=== PATIENT | male | born 1940 | race Caucasian/White ===

== ENCOUNTER 2019-05-17 10:14 | Emergency (ER) | payer MEDICARE, OTHER, SELFPAY ==
[2019-05-17 10:26] VITALS: BP 141/61; PULSE 92; RESP 20; TEMP 37; O2SAT 96; BMI 23.1
--- NOTE | 2019-05-17 10:27 | DI.RAD.S_ITS ---
PROCEDURE: XR CHEST 1V INDICATIONS: cough TECHNIQUE: One view of the chest was acquired. COMPARISON: [facility], CHEST 2 VIEW, 11/13/2007, 12:05. [facility], CHEST 2 VIEW, 06/06/2010, 12:00. FINDINGS: Surgical changes and devices: None. Lungs and pleura: Lungs are clear. No pleural effusions or pneumothorax. Mediastinum: Mediastinal contours appear normal. Heart size is normal. Bones and chest wall: No suspicious bony lesions. Age-appropriate bony degenerative changes are seen. Overlying soft tissues appear unremarkable. IMPRESSION: No focal infiltrates are seen. Dictated by: Dax Ag M.D. on 05/17/2019 at 9:50 Approved by: Dax Ag M.D. on 05/17/2019 at 9:51
--- NOTE | 2019-05-17 10:30 | ED.URI ---
HPI - URI/Sore Throat General Chief Complaint: Upper Respiratory Symptoms Stated Complaint: Uncontrollable shakes/chills Time Seen by Provider: 05/17/19 10:22 Source: patient Mode of arrival: ambulatory Limitations: no limitations History of Present Illness HPI Narrative: Patient today presents with shaking. He states last night he noticed he was quite cold and could not warm. This morning they went to [employer] and he again started shaking uncontrollably. He at no time had drenching sweats. He had a little cough yesterday after working outside with some things. He denies any shortness of breath with exertion no chest pain or heart palpitations. No abdominal pain nausea vomiting. No painful or frequent urination. His cough is nonproductive MD Complaint: cough Onset (ago): day(s) (1) Duration: improved Severity: mild Relieving factors: nothing Related Data Allergies Allergy/AdvReac Type Severity Reaction Status Date / Time No Known Drug Allergies Allergy Verified 05/17/19 10:30 Review of Systems Review of Systems ROS Unobtainable: All systems reviewed & are unremarkable except as noted in HPI and below Constitutional Reports chills, Denies night sweats and Denies weakness Eyes Denies change in vision, Denies eye discharge, Denies irritation and Denies loss of vision ENT Ears, Nose, Mouth, and Throat: Denies change in voice, Denies neck pain and Denies sore throat Cardiovascular Denies chest pain, Denies irregular heart rhythm, Denies lightheadedness, Denies palpitations and Denies orthopnea Respiratory Reports as per HPI Gastrointestinal Gastrointestinal: Denies abdominal pain, Denies change in bowel habits, Denies diarrhea, Denies nausea and Denies vomiting Musculoskeletal Denies neck pain Integumentary/Breasts Denies pruritus, Denies erythema, Denies rash and Denies wounds Neurologic Denies loss of vision and Denies weakness Endocrine Denies palpitations [facility] Medical History Patient denies significant medical history (Acute) Social History (Updated 05/17/19 @ 13:28 by Malinda Erickson DO) marital status: Smoking Status: Never smoker Social History marital status: Smoking Status: Never smoker Exam Initial Vital Signs Initial Vital Signs: Vital Signs Temperature 98.6 F 05/17/19 10:26 Pulse Rate 92 H 05/17/19 10:26 Respiratory Rate 20 05/17/19 10:26 Blood Pressure 141/61 H 05/17/19 10:26 Pulse Oximetry 96 05/17/19 10:26 GENERAL: Well-appearing, well-nourished and in no acute distress. HEENT: Head atraumatic,EOMI, pupils reactive, face symmetric, CARDIOVASCULAR: Regular rate and rhythm without murmurs, rubs or gallops. RESPIRATORY: Breath sounds equal bilaterally, no wheezes rales or rhonchi. ABDOMEN: Soft, nontender. Normoactive bowel sounds all 4 quadrants. No guarding or rebound. : No CVA tenderness EXTREMITIES: Normal range of motion, no clubbing or edema. Neurovascularly intact NEUROLOGICAL: Alert and oriented x4.Normal gait and speech. Cranial nerves II through XII grossly intact. SKIN: Warm, dry, no laceration, no petechiae, no rashes or lesions. Course Orders Ordered: ED Orders 05/17/19 10:27 XR chest 1V Stat 05/17/19 10:38 Complete Blood Count AUTO DIFF Stat Comprehensive Metabolic Panel Stat Lactate (Lactic Acid) Stat Procalcitonin Stat 05/17/19 11:06 Blood Culture Stat 05/17/19 12:05 Urine Microscopic Stat Discontinued Medications Sodium Chloride (Normal Saline 0.9%) 1,000 mls @ 1,000 mls/hr IV CONT KADE Last Infusion: 05/17/19 11:58 Dose: 0 mls/hr Admin: 05/17/19 10:47 Dose: 1,000 mls/hr Vital Signs - 8 hr 05/17/19 10:26 05/17/19 11:00 05/17/19 12:09 Temperature 98.6 F Pulse Rate 92 H 83 82 Respiratory Rate 20 21 20 Blood Pressure 141/61 H Blood Pressure [Right Arm] 135/51 L 117/45 L Pulse Oximetry 96 97 99 MDM - URI/Sore Throat Lab Data Attestation: I reviewed the patient's lab results. Result diagrams: 05/17/19 10:38 05/17/19 10:38 Lab Results 05/17/19 05/17/19 05/17/19 Range/Units 10:38 10:38 10:38 WBC 11.8 H (4.5-11.0) X10^3/uL RBC 4.91 (4.5-5.9) X10^6/uL Hgb 15.3 (13.5-17.5) g/dL Hct 45.0 (41-53) % MCV 91.6 (80-100) fL MCH 31.0 (26-34) PG MCHC 33.9 (30-36) % RDW 13.0 (11.6-14.8) % Plt Count 165 (150-400) X10^3/uL Neut % (Auto) 95.0 H (50-75) % Lymph % (Auto) 3.1 L (25-40) % [place] % (Auto) 1.3 L (3-14) % Eos % (Auto) 0.4 L (2-4) % Baso % (Auto) 0.2 (0-2) % Neut # (Auto) 04140 H (0394-7519) /uL Lymph # (Auto) 400 L (5062-2900) /uL Rowan # (Auto) 200 (0-900) /uL Eos # (Auto) 0 (0-450) /uL Baso # (Auto) 0 (0-100) /uL Sodium 138 (137-145) mmol/L Potassium 4.2 (3.4-5.1) mmol/L Chloride 101 (98-107) mmol/L Carbon Dioxide 26 (22-32) mmol/L BUN 21 H (9-20) mg/dL Creatinine 1.10 (0.66-1.25) mg/dL Estimated GFR > 60.0 (>60) mL/min BUN/Creatinine Ratio 19.1 (6-22) Glucose 98 (80-110) mg/dL Lactate (0.7-2.1) mmol/L Calcium 9.4 (8.4-10.2) mg/dL Total Bilirubin 1.1 (0.2-1.3) mg/dL AST 27 (17-59) IU/L ALT 25 (21-72) IU/L Alkaline Phosphatase 76 (38-126) U/L Total Protein 7.3 (6.3-8.2) g/dL Albumin 4.3 (3.5-5.0) g/dL Globulin 3.0 (1.7-4.1) g/dL Albumin/Globulin Ratio 1.4 (1.0-2.8) Procalcitonin < 0.05 (<0.5) ng/mL Urine RBC (0-5/HPF) Urine WBC (0-5/HPF) Ur Squamous Epith Cells (0-5/HPF) Urine Bacteria (None) Ur Culture Indicated? 05/17/19 05/17/19 Range/Units 10:38 12:05 WBC (4.5-11.0) X10^3/uL RBC (4.5-5.9) X10^6/uL Hgb (13.5-17.5) g/dL Hct (41-53) % MCV (80-100) fL MCH (26-34) PG MCHC (30-36) % RDW (11.6-14.8) % Plt Count (150-400) X10^3/uL Neut % (Auto) (50-75) % Lymph % (Auto) (25-40) % Rowan % (Auto) (3-14) % Eos % (Auto) (2-4) % Baso % (Auto) (0-2) % Neut # (Auto) (5194-0328) /uL Lymph # (Auto) (0511-2922) /uL Rowan # (Auto) (0-900) /uL Eos # (Auto) (0-450) /uL Baso # (Auto) (0-100) /uL Sodium (137-145) mmol/L Potassium (3.4-5.1) mmol/L Chloride (98-107) mmol/L Carbon Dioxide (22-32) mmol/L BUN (9-20) mg/dL Creatinine (0.66-1.25) mg/dL Estimated GFR (>60) mL/min BUN/Creatinine Ratio (6-22) Glucose (80-110) mg/dL Lactate 1.6 (0.7-2.1) mmol/L Calcium (8.4-10.2) mg/dL Total Bilirubin (0.2-1.3) mg/dL AST (17-59) IU/L ALT (21-72) IU/L Alkaline Phosphatase (38-126) U/L Total Protein (6.3-8.2) g/dL Albumin (3.5-5.0) g/dL Globulin (1.7-4.1) g/dL Albumin/Globulin Ratio (1.0-2.8) Procalcitonin (<0.5) ng/mL Urine RBC 0-1/hpf (0-5/HPF) Urine WBC 0-1/hpf (0-5/HPF) Ur Squamous Epith Cells 0-1 /hpf (0-5/HPF) Urine Bacteria None seen (None) Ur Culture Indicated? Cult not indicated Urine Dip Bedside Urine Glucose Negative Bedside Urine Bilirubin - Negative Bedside Urine Ketone - Negative Urine Specific [place] 1.020 Bedside Urine Occult Blood +/- Bedside Urine pH 5.0 Bedside Urine Protein - Negative Bedside Urine Urobilinogen - Negative Bedside Urine Nitrite - Negative Bedside Urine Leukocytes - Negative Esterase Imaging Data Chest x-ray: Radiologist's impression: Report in PACS no focal infiltrates are seen MDM Narrative Medical decision making narrative: At this time patient has been only chilled for under 12 hours. No sweats or fever. No sign of infection. I explained that he may be getting an infection. However no focal infection identified no need for antibiotics. He did have slight nonproductive cough yesterday. Possible bronchitis. He has no focal deficits to suggest stroke or anything neurologic. He has been ambulatory to the restroom at least twice. Discharge Plan Departure Patient Disposition: Home Clinical Impression: Upper respiratory infection Qualifiers: URI type: unspecified viral URI Qualified Code(s): J06.9 - Acute upper respiratory infection, unspecified Discharge Date/Time: 05/17/19 12:35 Interventions: ED Discharge Assessment Last Done: 05/17/19 12:34 Instructions: DI for Acute Bronchitis Activity Restrictions/Additional Instructions: *You have been diagnosed with possible bronchitis *What to do: At this time no pneumonia no sign of infection. Recommend resting increasing fluid intake. At this time there is no indication for antibiotics. *Continue to take medications as directed *Follow up with your primary care provider in 2-3 days *Return to ER if you should have worsening cough, shortness of breath, sweats or any new, worsening or concerning symptoms Referrals: Jarocho Pelletier MD [Primary Care Provider] -
--- NOTE | 2019-05-17 10:33 | ED_ITS ---
HPI - URI/Sore Throat General Chief Complaint: Upper Respiratory Symptoms Stated Complaint: Uncontrollable shakes/chills Time Seen by Provider: 05/17/19 10:22 Source: patient Mode of arrival: ambulatory Limitations: no limitations History of Present Illness HPI Narrative: Patient today presents with shaking. He states last night he noticed he was quite cold and could not warm. This [place] [facility] [place] [employer] [place] and he again started shaking uncontrollably. He at no time had drenching sweats. He had a little cough yesterday after working outside with some things. He denies any shortness of breath with exertion no chest pain or heart palpitations. No abdominal pain nausea vomiting. No painful or frequent u rination. His cough is nonproductive MD Complaint: cough Onset (ago): day(s) (1) Duration: improved Severity: mild Relieving factors: nothing Related Data Allergies Allergy/AdvReac Type Severity Reaction Status Date / Time No Known Drug Allergies Allergy Verified 05/17/19 10:30 Review of Systems Review of Systems ROS Unobtainable: All systems reviewed & are unremarkable except as noted in HPI and below Constitutional Reports chills, Denies night sweats and Denies weakness Eyes Denies change in vision, Denies eye discharge, Denies irritation and Denies loss of vision ENT Ears, Nose, Mouth, and Throat: Denies change in voice, Denies neck pain and Denies sore throat Cardiovascular Denies chest pain, Denies irregular heart rhythm, Denies lightheadedness, Denies palpitations and Denies orthopnea Respiratory Reports as per HPI Gastrointestinal Gastrointestinal: Denies abdominal pain, Denies change in bowel habits, Denies diarrhea, Denies nausea and Denies vomiting Musculoskeletal Denies neck pain Integumentary/Breasts Denies pruritus, Denies erythema, Denies rash and Denies wounds Neurologic Denies loss of vision and Denies weakness Endocrine Denies palpitations [facility] Medical History Patient denies significant medical history (Acute) Social History (Updated 05/17/19 @ 13:28 by Malinda Erickson DO) marital status: Smoking Status: Never smoker Social History marital status: Smoking Status: Never smoker Exam Initial Vital Signs Initial Vital Signs: Vital Signs Temperature 98.6 F 05/17/19 10:26 Pulse Rate 92 H 05/17/19 10:26 Respiratory Rate 20 05/17/19 10:26 Blood Pressure 141/61 H 05/17/19 10:26 Pulse Oximetry 96 05/17/19 10:26 GENERAL: Well-appearing, well-nourished and in no acute distress. HEENT: Head atraumatic,EOMI, pupils reactive, face symmetric, CARDIOVASCULAR: Regular rate and rhythm without murmurs, rubs or gallops. RESPIRATORY: Breath sounds equal bilaterally, no wheezes rales or rhonchi. ABDOMEN: Soft, nontender. Normoactive bowel sounds all 4 quadrants. No guarding or rebound. : No CVA tenderness EXTREMITIES: Normal range of motion, no clubbing or edema. Neurovascularly intact NEUROLOGICAL: Alert and oriented x4.Normal gait and speech. Cranial nerves II through XII grossly intact. SKIN: Warm, dry, no laceration, no petechiae, no rashes or lesions. Course Orders Ordered: ED Orders 05/17/19 10:27 XR chest 1V Stat 05/17/19 10:38 Complete Blood Count AUTO DIFF Stat Comprehensive Metabolic Panel Stat Lactate (Lactic Acid) Stat Procalcitonin Stat 05/17/19 11:06 Blood Culture Stat 05/17/19 12:05 Urine Microscopic Stat Discontinued Medications Sodium Chloride (Normal Saline 0.9%) 1,000 mls @ 1,000 mls/hr IV CONT KADE Last Infusion: 05/17/19 11:58 Dose: 0 mls/hr Admin: 05/17/19 10:47 Dose: 1,000 mls/hr Vital Signs - 8 hr 05/17/19 10:26 05/17/19 11:00 05/17/19 12:09 Temperature 98.6 F Pulse Rate 92 H 83 82 Respiratory Rate 20 21 20 Blood Pressure 141/61 H Blood Pressure [Right Arm] 135/51 L 117/45 L Pulse Oximetry 96 97 99 MDM - URI/Sore Throat Lab Data Attestation: I reviewed the patient's lab results. Result diagrams: 05/17/19 10:38 05/17/19 10:38 Lab Results 05/17/19 05/17/19 05/17/19 Range/Units 10:38 10:38 10:38 WBC 11.8 H (4.5-11.0) X10^3/uL RBC 4.91 (4.5-5.9) X10^6/uL Hgb 15.3 (13.5-17.5) g/dL Hct 45.0 (41-53) % MCV 91.6 (80-100) fL MCH 31.0 (26-34) PG MCHC 33.9 (30-36) % RDW 13.0 (11.6-14.8) % Plt Count 165 (150-400) X10^3/uL Neut % (Auto) 95.0 H (50-75) % Lymph % (Auto) 3.1 L (25-40) % [place] % (Auto) 1.3 L (3-14) % Eos % (Auto) 0.4 L (2-4) % Baso % (Auto) 0.2 (0-2) % Neut # (Auto) 23046 H (4584-4121) /uL Lymph # (Auto) 400 L (8749-2359) /uL [place] # (Auto) 200 (0-900) /uL Eos # (Auto) 0 (0-450) /uL Baso # (Auto) 0 (0-100) /uL Sodium 138 (137-145) mmol/L Potassium 4.2 (3.4-5.1) mmol/L Chloride 101 (98-107) mmol/L Carbon Dioxide 26 (22-32) mmol/L BUN 21 H (9-20) mg/dL Creatinine 1.10 (0.66-1.25) mg/dL Estimated GFR > 60.0 (>60) mL/min BUN/Creatinine Ratio 19.1 (6-22) Glucose 98 (80-110) mg/dL Lactate (0.7-2.1) mmol/L Calcium 9.4 (8.4-10.2) mg/dL Total Bilirubin 1.1 (0.2-1.3) mg/dL AST 27 (17-59) IU/L ALT 25 (21-72) IU/L Alkaline Phosphatase 76 (38-126) U/L Total Protein 7.3 (6.3-8.2) g/dL Albumin 4.3 (3.5-5.0) g/dL Globulin 3.0 (1.7-4.1) g/dL Albumin/Globulin Ratio 1.4 (1.0-2.8) Procalcitonin < 0.05 (<0.5) ng/mL Urine RBC (0-5/HPF) Urine WBC (0-5/HPF) Ur Squamous Epith Cells (0-5/HPF) Urine Bacteria (None) Ur Culture Indicated? 05/17/19 05/17/19 Range/Units 10:38 12:05 WBC (4.5-11.0) X10^3/uL RBC (4.5-5.9) X10^6/uL Hgb (13.5-17.5) g/dL Hct (41-53) % MCV (80-100) fL MCH (26-34) PG MCHC (30-36) % RDW (11.6-14.8) % Plt Count (150-400) X10^3/uL Neut % (Auto) (50-75) % Lymph % (Auto) (25-40) % [place] % (Auto) (3-14) % Eos % (Auto) (2-4) % Baso % (Auto) (0-2) % Neut # (Auto) (8215-6958) /uL Lymph # (Auto) (5043-3818) /uL [place] # (Auto) (0-900) /uL Eos # (Auto) (0-450) /uL Baso # (Auto) (0-100) /uL Sodium (137-145) mmol/L Potassium (3.4-5.1) mmol/L Chloride (98-107) mmol/L Carbon Dioxide (22-32) mmol/L BUN (9-20) mg/dL Creatinine (0.66-1.25) mg/dL Estimated GFR (>60) mL/min BUN/Creatinine Ratio (6-22) Glucose (80-110) mg/dL Lactate 1.6 (0.7-2.1) mmol/L Calcium (8.4-10.2) mg/dL Total Bilirubin (0.2-1.3) mg/dL AST (17-59) IU/L ALT (21-72) IU/L Alkaline Phosphatase (38-126) U/L Total Protein (6.3-8.2) g/dL Albumin (3.5-5.0) g/dL Globulin (1.7-4.1) g/dL Albumin/Globulin Ratio (1.0-2.8) Procalcitonin (<0.5) ng/mL Urine RBC 0-1/hpf (0-5/HPF) Urine WBC 0-1/hpf (0-5/HPF) Ur Squamous Epith Cells 0-1 /hpf (0-5/HPF) Urine Bacteria None seen (None) Ur Culture Indicated? Cult not indicated Urine Dip Bedside Urine Glucose Negative Bedside Urine Bilirubin - Negative Bedside Urine Ketone - Negative Urine Specific [place] 1.020 Bedside Urine Occult Blood +/- Bedside Urine pH 5.0 Bedside Urine Protein - Negative Bedside Urine Urobilinogen - Negative Bedside Urine Nitrite - Negative Bedside Urine Leukocytes - Negative Esterase Imaging Data Chest x-ray: Radiologist's impression: Report in PACS no focal infiltrates are seen MDM Narrative Medical decision making narrative: At this time patient has been only chilled for under 12 hours. No sweats or fever. No sign of infection. I explained that he may be getting an infection. However no focal infection identified no need for antibiotics. He did have slight nonproductive cough yesterday. Possible bronchitis. He has no focal deficits to suggest stroke or anything neurologic. He has been ambulatory to the restroom at least twice. Discharge Plan Departure Patient Disposition: Home Clinical Impression: Upper respiratory infection Qualifiers: URI type: unspecified viral URI Qualified Code(s): J06.9 - Acute upper respiratory infection, unspecified Discharge Date/Time: 05/17/19 12:35 Interventions: ED Discharge Assessment Last Done: 05/17/19 12:34 Instructions: DI for Acute Bronchitis Activity Restrictions/Additional Instructions: *You have been diagnosed with possible bronchitis *What to do: At this time no pneumonia no sign of infection. Recommend resting increasing fluid intake. At this time there is no indication for antibiotics. *Continue to take medications as directed *Follow up with your primary care provider in 2-3 days *Return to ER if you should have worsening cough, shortness of breath, sweats or any new, worsening or concerning symptoms Referrals: Jarocho Pelletier MD [Primary Care Provider] -
[2019-05-17 10:46] LABS: Add Manual Diff / Slide Review NO; Basophils Absolute Auto 0 /uL (0-100); Basophils Percent Auto 0.2 % (0-2); Eosinophils Absolute Auto 0 /uL (0-450); Eosinophils Percent Auto 0.4 % (2-4); Hemoglobin 15.3 g/dL (13.5-17.5); Lymphocytes Absolute Auto 400 /uL (1100-4500); Lymphocytes Percent Auto 3.1 % (25-40); Mean Corpuscular HGB Conc 33.9 % (30-36); Mean Corpuscular Volume 91.6 fL (80-100); Monocytes Absolute Auto 200 /uL (0-900); Monocytes Percent Auto 1.3 % (3-14); Neutrophils Absolute Auto 11200 /uL (1500-7000); Platelet Count 165 X10^3/uL (150-400); Red Blood Cell Count 4.91 X10^6/uL (4.5-5.9); White Blood Cell Count 11.8 X10^3/uL (4.5-11.0)
[2019-05-17] MEDS: SODIUM CHLORIDE 0.9% 1,000 ML 1000 ML IV (10:47)
[2019-05-17 11:00] VITALS: BP 135/51; PULSE 83; RESP 21; O2SAT 97
[2019-05-17 11:00] LABS: Lactate (Lactic Acid) 1.6 mmol/L (0.7-2.1)
[2019-05-17 11:01] LABS: Alanine Aminotransferase 25 IU/L (21-72); Albumin 4.3 g/dL (3.5-5.0); Albumin Globulin Ratio 1.4 (1.0-2.8); Alkaline Phosphatase 76 U/L (38-126); Aspartate Aminotransferase 27 IU/L (17-59); BUN Creatinine Ratio 19.1 (6-22); Bilirubin Total 1.1 mg/dL (0.2-1.3); Blood Urea Nitrogen 21 mg/dL (9-20); Calcium 9.4 mg/dL (8.4-10.2); Carbon Dioxide 26 mmol/L (22-32); Chloride 101 mmol/L (98-107); Estimated Glomerular Filt Rate > 60.0 mL/min (>60); Glucose 98 mg/dL (80-110); HEMOLYSIS 19 (0-50); Potassium 4.2 mmol/L (3.4-5.1); Sodium 138 mmol/L (137-145); Total Protein 7.3 g/dL (6.3-8.2)
[2019-05-17 11:16] LABS: Procalcitonin < 0.05 ng/mL (<0.5)
[2019-05-17 12:09] VITALS: BP 117/45; PULSE 82; RESP 20; O2SAT 99
[2019-05-17 12:26] LABS: Bacteria Urine None Seen
[2019-05-17 12:43] LABS: Culture Indicated Urine Cult Not Indicated; RBC Urine 0-1/HPF (0-5/HPF); Squamous Epithelial Cell Urine 0-1 /HPF (0-5/HPF); WBC Urine 0-1/HPF (0-5/HPF)
== END 2019-05-17 12:35 | disposition home or self-care (01) ==
PROVIDERS: Emergency Provider Emergency Medicine; PCP Internal Medicine
DX: J06.9 Acute upper respiratory infection, unspecified (principal)
CPT/HCPCS: 36415; 36591; 71045; 80053; 81003; 81015; 83605; 84145; 85025; 87040; 96360; 99283; 99284

== ENCOUNTER → 2019-05-18 18:06 | Outpatient (CLI) | payer MEDICARE, OTHER, SELFPAY | PROVIDERS: PCP Internal Medicine; Visit Provider Physician Assistant | DX: J02.9 Acute pharyngitis, unspecified (principal) | CPT/HCPCS: 87070 ==

== ENCOUNTER → 2023-01-28 06:45 | Outpatient (CLI) | payer MEDICARE, OTHER, SELFPAY ==
--- NOTE | 2023-01-28 | DI.ECHO.S_ITS ---
[place] [facility]---------[facility] +---------+ : : [address] : : : : [id number] : : : : Phone: [phone]+ Echocardiogram Report + + :Name: ABHIJIT MULLER Study Date: 01/28/2023 Height: 73 in : :[facility] ReadingLocation: Weight: 170 lb : : Gender: Male BSA: 2.0 m2 : :: 1940 Age: 82 yrs BP: 122/64 mmHg: :Reason For Study: FATIGUE : :Ordering Physician: KASSANDRA, : :CASSIUS Browne Performed By: Doris Gonzalez : :Referring: CASSIUS CANNON : + + Interpretation Summary 1) Normal left ventricular thickness and size with low normal systolic function (EF 50-55%). 2) Normal right ventricular size and function. 3) There is mild mitral regurgitation. 4) No prior Echo available for comparison. Procedure: A two-dimensional transthoracic echocardiogram with color flow and Doppler was performed. The study quality was technically adequate. There is no prior echocardiogram noted for this patient. The patient had frequent PVCs during the exam. Patient was in bigeminy throughout exam. The heart rate ranged between 65-68 bpm during the study. Left Ventricle: The left ventricle is normal in size and wall thickness. The ejection fraction is estimated to be 50-55%. Right Ventricle: The right ventricle is normal in size and function. Atria: The left atrial size is normal. Right atrial size is normal. There is no Doppler evidence for an interatrial shunt. Mitral Valve: There is mild mitral annular calcification. The mitral valve leaflets appear mildly thickened, but open well. There is a flat closure plane of the the mitral valve leaflets. There is mild mitral regurgitation. Aortic Valve: The aortic valve is trileaflet. The aortic valve opens well. There is no aortic valve stenosis. There is mild aortic regurgitation. Tricuspid Valve: The tricuspid valve is normal in structure and function. There is mild tricuspid regurgitation. The right ventricular systolic pressure is estimated to be at least 32 mmHg based on an estimated right atrial pressure of 3 mm Hg. Pulmonic Valve: The pulmonic valve leaflets are thin and pliable; valve motion is normal. There is mild pulmonic regurgitation. Great Vessels: The aortic root is normal size. The dimensions of the ascending aorta are normal. The IVC is of normal diameter and collapses greater than 50% with a sniff. This suggests a low right atrial pressure of 3 mm Hg. Pericardium/ Pleura There is no pericardial effusion. There is no pleural effusion. MMode/2D Measurements & Calculations LVIDd: 4.7 cm LVOT diam: 2.2 cm LVIDs: 3.1 cm Ao root diam: 3.3 cm FS: 32.9 % asc Aorta Diam: 3.3 cm EPSS: 0.81 cm IVSd: 0.86 cm LVPWd: 0.74 cm LV valdez. diameter/BSA (cm/m^2): 2.3 LV sys. diameter/BSA (cm/m^2): 1.6 LA A2 area: 18.9 cm2 RA long axis: 5.7 cm LA A4 area: 17.6 cm2 RA area: 20.7 cm2 LA length (vol): 4.8 cm RA vol: 64.3 ml LA vol: 59.0 ml RA : 32.0 ml/m2 LA vol index: 29.4 ml/m2 IVC diam: 1.9 cm RVD1 (basal): 3.9 cm RVD2 (mid): 3.2 cm TAPSE: 2.4 cm Doppler Measurements & Calculations Ao V2 max: 101.4 cm/sec LVOT Max Leonard: 77.7 cm/sec Ao V2 mean: 73.6 cm/sec LV V1 max P.4 mmHg Ao max P.1 mmHg LV V1 VTI: 20.7 cm Ao mean P.4 mmHg THERESE(I,D): 3.3 cm2 Ao V2 VTI: 24.7 cm THERESE(V,D): 3.0 cm2 sev ratio: 0.84 THERESE indexed to BSA (cm^2/m^2): 1.6 MV E max leonard: 89.6 cm/sec TR max leonard: 268.8 cm/sec Med Peak E' Leonard: 8.6 cm/sec TR max P.9 mmHg E/E' med: 10.4 PA V2 max: 88.2 cm/sec Lat Peak E' Leonard: 10.0 cm/sec PA V2 mean: 64.9 cm/sec E/E' lat: 8.9 PA mean P.9 mmHg E/e' average: 9.7 PA pr(Accel): 20.8 mmHg SV(LVOT): 80.3 ml Reading Physician:11:22 AM
== END ==
PROVIDERS: PCP Family Medicine; Referring Provider Family Medicine; Visit Provider Family Medicine
DX: R53.83 Other fatigue (principal); I08.3 Combined rheumatic disorders of mitral, aortic and tricuspid valves
CPT/HCPCS: 93306